=== PATIENT | male | born 1955 | race Caucasian/White ===

== ENCOUNTER → 2021-02-12 | Outpatient (CLI) | payer OTHER, BC ==
[~2021-02-12] VITALS: Ht 177.8 cm; Wt 99.8 kg
[~2021-02-12] MED LIST: BUMEX2 MG PO; BUPROPION HCL150 M1 PO; CIALIS20 MG PO; COMBIVENT INH; FLEXERIL PO; IPRAT-ALBUT 0.5-3 ML INH; LIDOCAINE5 GM TOP; LISINOPRIL10 MG PO; LORAZEPAM 1 MG T1 MG PO; MAGOX 400400 MG PO; NAPROSYN500 M1 PO; NEURONTIN 400400 M1 PO; NORCO7.5 PO; NORVASC5 MG PO; PROTONIX40 M2 PO; RELAFEN500 M1 PO; SYMBICORT160 MCG/4. INH; TRAMADOL 50 MG50 MG PO; VENTOLIN HFA INH8 GM INH; VIAGRA100 MG PO; VITAMIN B12-FO1 EAC1 PO
[2021-02-12 12:52] VITALS: BP 141/84
--- NOTE | 2021-02-12 13:21 | NUR ---
[facility] Assessment: 1. History of Osteoarthritis: BACK History of Rheumatoid Arthritis: Not Applicable 2. Height: 5 ft. 10 in. 177.8 cm. Weight: 220.0 lb. oz. 99.792 kg. Patient's BMI: 31.6 3. Vital Signs: BP: 141/84 Pulse: 83 Resp: 14 Temp: 02 Sat: 95 ECG Mon: 4. Pain Intensity: 10 5. Fall Risk: Dizziness: N Needs help standing or walking: Y Fallen in the last 3 months: Y Fall risk comments: 6. Patient on Blood Thinner: None 7. History of Hypertension: Y 8. Opioid Therapy greater than 6 weeks: Y Opiate Contract Signed: 9. Risk Assessment Tool Provided: MOD 10. Functional Assessment Tool: / 11. Recreational Drug Use: Past greater than 3 mos Drug Type: COCAINE Tobacco Use: Current Every Day Smoker Tobacco Type: Cigarettes Amount or Packs/day: 1/2 How Many Years: 50 Alcohol Use: Yes Frequency: Weekly Quant: 6-8
== END | disposition home or self-care (01) ==
LOC: PAIN 12:11
PROVIDERS: ATTEND Anesthesiology Pain Medicine
DX: M54.41 Lumbago with sciatica, right side (principal); M47.896 Other spondylosis, lumbar region; M48.062 Spinal stenosis, lumbar region with neurogenic claudication; M51.36 Other intervertebral disc degeneration, lumbar region; I10 Essential (primary) hypertension; E78.2 Mixed hyperlipidemia; M81.0 Age-related osteoporosis without current pathological fracture; F41.9 Anxiety disorder, unspecified; F17.210 Nicotine dependence, cigarettes, uncomplicated; Z98.890 Other specified postprocedural states; Z79.899 Other long term (current) drug therapy; Z96.642 Presence of left artificial hip joint; Z98.52 Vasectomy status